=== PATIENT | male | born 1950 | race Caucasian/White ===

== ENCOUNTER 2016-08-28 22:51 | Observation (INO) | payer OTHER, MEDICARE ==
--- NOTE | ~2016-08-28 | HP ---
History And Physical [facility] [address] [facility] [place]. [address] NAME: KRISTINA MANN SR : 54 STATUS : DIS Jeremias PAT#: [id number] AGE: 66 ADM/REG DATE : 08/28/16 MR#: [id number] REPORT SERV DATE: 08/30/16 DICTATED BY: RICARDO FRAZIER DATE: 08/29/16 REPORT STATUS : Draft TRANSCRIBED BY: MODL DATE: 08/29/16 DATE OF ADMISSION: 08/28/2016 CHIEF COMPLAINT: Weakness, slurred speech, and right facial numbness. HISTORY OF PRESENT ILLNESS: This is a 65-year-old male with a history of cirrhosis of the liver with splenomegaly, portal hypertension, and insulin-dependent diabetes mellitus who comes to the emergency room today at [facility], brought by one of his friends. History was obtained from the patient, his who is at bedside, and reviewing data available on the Optimus system. According to the patient and his , he actually was alone in his house today as his had been to [place]. In the afternoon, he started having difficulty with speaking and found he had slurred speech. The right side of his face also started going numb and later on started drawing in his words. This resulted in his mouth being all crooked. He tried calling his , but she was at a place where she could not get her phone. So, he called his neighbor friend who saw the whole thing and decided to bring him to the emergency room here. The patient had to be driven over here in a TUV as he was afraid if he called an ambulance, they would take him to [facility] where he did not want to go. In the emergency room upon arrival, his symptoms had all but resolved. His facial numbness and drawing had resolved, and he was able to speak. The rest of his workup revealed he had pancytopenia with thrombocytopenia and a platelet count of 25,000, and given his symptoms of transient ischemic attack, Hospitalist Service was asked to admit him for further evaluation and treatment. At the time of my evaluation, he denied any chest pain, palpitations, or orthopnea. He had no cough, hemoptysis, night sweats, or weight loss. He has not had any recent falls or loss of consciousness. He has not had any recent fevers, chills, nausea, vomiting, or diarrhea. No history of recent hematemesis, hematochezia, or hematuria. No other history of recent travel or exposures. PAST MEDICAL HISTORY: Significant for history of cirrhosis of the liver with splenomegaly, portal hypertension with gastric and esophageal varices, insulin-dependent diabetes mellitus, hypertension, and pseudoseizures. He has had cholecystectomy and liver biopsy in the past. He also has colitis. SOCIAL HISTORY: He does not smoke. He used to drink but has not had any liquor in the last 12 years. No history of recreational drug use. 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 FAMILY HISTORY: Noncontributory. MEDICATIONS: His medications at home were reviewed by me in the chart today and reordered by me. REVIEW OF SYSTEMS: As in the history of present illness. All other systems were reviewed in detail and are History And Physical [address] [place]. [address] NAME: KRISTINA MANN : 54 STATUS : DIS Jeremias PAT#: [id number] AGE: 66 ADM/REG DATE : 08/28/16 MR#: [id number] REPORT SERV DATE: 08/30/16 DICTATED BY: RICARDO FRAZIER DATE: 08/29/16 REPORT STATUS : Draft TRANSCRIBED BY: KEIRA DATE: 08/29/16 quite unremarkable. PHYSICAL EXAMINATION: GENERAL: This is a pleasant 65-year-old, not in any acute distress. HEENT: His head is atraumatic and normocephalic. He is alert, awake, and oriented to time, place, and person. Pupils are equal, reacting to light, and accommodating. External ocular muscles are intact. Membranes are moist and pink. Sclerae are nonicteric. NECK: Supple with no jugular venous distention, lymphadenopathy, or thyromegaly. LUNGS: Clear to auscultation with no wheezes, rubs, or crackles. HEART: Heart sounds were regular with no murmurs, rubs, or gallops. ABDOMEN: Soft and nontender. Bowel sounds are present. EXTREMITIES: Showed no cyanosis, clubbing, or edema. NEUROLOGIC: Exam appeared to be essentially within normal limits. There were no deficits, motor or sensory. Speech was normal. Higher functions appeared intact. He was able to move all four extremities. Gait was normal. VITAL SIGNS: His vital signs today showed a temperature of 98.3, pulse 86, respirations 18 a minute, and blood pressure was 133/65. Oxygen saturations were 99%, breathing 2 liters of oxygen via nasal cannula. LABORATORY DATA: Reviewed on the Optimus system showed a sodium of 139, potassium 3.8, chloride 107, CO2 of 23, BUN was 13 with a creatinine of 0.90, and blood glucose was 243. His troponin was 0.02 and ammonia was 57 today. CBC showed a white blood cell count of 3000. Hemoglobin was 12.2, hematocrit 34.8, and the platelet count was down to 25,000. His prothrombin time was 18.5 with an INR 1.6 today. Urinalysis was grossly unremarkable today. Films of the CT scan of his brain; films were reviewed by me on the PACS today and interpreted by me. Official radiology report was also reviewed. There is no acute intracranial process at this time. Chest x-ray films were reviewed and interpreted by me on the PACS. Per my interpretation, there are increased vascular markings with a small right- sided pleural effusion as well. A 12-lead EKG done in the emergency room was reviewed and interpreted by me. There is normal sinus rhythm with a rate of [address] elevations or depressions. IMPRESSION: 1. Dysarthria. 2. Right facial numbness. 3. Transient ischemic attack. 4. Pancytopenia. 5. Hypertension. 6. Cirrhosis of the liver with splenomegaly. 7. Portal hypertension with gastric and esophageal varices, status post banding. 8. History of pseudoseizures. PLAN: We will admit Mr. Mann to the Hospitalist Service with telemetry for a 24-hour observation period. We will follow non-tPA stroke orders. Consult Neurology in the morning. We will check his MRI and MRA of the brain and echo as well. We will hold off on aspirin therapy due to his low platelets and continue statins. Further recommendations will be after Neurology has seen him and he has had his above testing. At this point, I do not History And Physical [address] [place]. [address] NAME: KRISTINA MANN : 54 STATUS : DIS Jeremias PAT#: [id number] AGE: 66 ADM/REG DATE : 08/28/16 MR#: [id number] REPORT SERV DATE: 08/30/16 DICTATED BY: FREDDIERICARDO DATE: 08/29/16 REPORT STATUS : Draft TRANSCRIBED BY: KEIRA DATE: 08/29/16 think cirrhosis is contributing to his above symptoms. His ammonia is stable. His portal hypertension is stable. We will start him on blood sugar control with NovoLog given subcutaneously per sliding scale. Continue all other medications and treatments that he is on. We will place him on SCDs for DVT prophylaxis while he is here. While I was there, he had another episode of shaking allover his body, especially his upper and lower extremities, but during the shaking, I addressed him and had a conversation with him, and he was able to talk to me. It lasted for a couple of minutes and quit. He had no postictal signs at all. He was able to have a conversation with me. Hospitalist Service will be following him during his stay here. /KEIRA Ricardo Frazier M.D. / [id number] CC: Jean Sutherland Jr, MD
--- NOTE | ~2016-08-28 | DS ---
Discharge Summary [facility] [address] [place]. [address] NAME: KRISTINA MANN SR : 54 STATUS : DIS Jeremias PAT#: [id number] AGE: 66 ADM/REG DATE : 08/28/16 MR#: [id number] REPORT SERV DATE: 08/31/16 DICTATED BY: JR. SUTHERLAND WILLIAM JOHN DATE: 08/30/16 REPORT STATUS : Draft TRANSCRIBED BY: KEIRA DATE: 08/30/16 ADMISSION DATE: 08/28/2016 DISCHARGE DATE: 08/30/2016 DISCHARGE DIAGNOSES: 1. Transient ischemic attack with facial numbness and dysarthria. 2. Cirrhosis. 3. Splenomegaly. 4. Portal hypertension. 5. History of esophageal varices. 6. Chronic pain and leukopenia. 7. Chronic thrombocytopenia. 8. Diabetes mellitus type 2 with a hemoglobin A1c of 6.7. 9. History of pseudoseizures. 10.Hypokalemia. OPERATIONS, PROCEDURES, AND TREATMENTS: Include: 1. CT of the brain done on 08/28/2016, which was unremarkable without acute intracranial pathology. 2. Chest x-ray done on 08/28/2016, there was possible atelectasis and/or effusion versus possible pneumonia of the right lung base. 3. MRI of the brain showed no acute intracranial pathology. 4. MRA of the neck and head, both of which were normal. CONSULTING PHYSICIAN: Dr. Beata Cristobal of Neurology. DISCHARGE MEDICATIONS: Included, 1. Vitamin C 500 mg orally twice a day. 2. Vitamin B12 of 1000 mcg orally daily. 3. Calcium plus D 500 mg orally daily. 4. Lasix 40 mg orally daily. 5. Nadolol 20 mg orally daily. 6. Omeprazole 40 mg orally daily. 7. Rifaximin 550 mg orally twice a day. 8. Aldactone 50 mg orally daily. 9. Topamax 25 mg orally twice a day. 10.70/30 insulin 25 units twice a day. 11.Magnesium 1 tablet orally daily. HOSPITAL COURSE: The patient was a 65-year-old white male, presented to [facility] emergency room on 08/28/2016 with complaint of weakness, slurred speech, and right-sided facial numbness. The patient had been alone all day. His was out of town. He started having difficulty speaking and was found to have slurred speech with the right side of his face started going numb and later started drawing his words. This results with his mouth being "crooked." He tried calling his , but he said he could not get her on the phone, so he called his neighbor, who saw the whole thing and decided to bring him to the emergency Discharge Summary [place] [address] [place]. [address] NAME: KRISTINA MANN : 54 STATUS : DIS Jeremias PAT#: [id number] AGE: 66 ADM/REG DATE : 08/28/16 MR#: [id number] REPORT SERV DATE: 08/31/16 DICTATED BY: JR. SUTHERLAND WILLIAM JOHN DATE: 08/30/16 REPORT STATUS : Draft TRANSCRIBED BY: KEIRA DATE: 08/30/16 room. At that time, the patient presented to the emergency room, his symptoms had resolved. Initial exam was remarkable for a neurologic exam that was normal. Vital signs were normal. Laboratory was remarkable for leukopenia and thrombocytopenia, which are chronic and secondary to cirrhosis. The patient was admitted to the Clinical Decision Unit. He was seen in consultation by Dr. Beata Cristobal of Neurology who recommended MRI of the brain, MRA of the head and neck. The patient also had a headache and was started on Topamax. By 08/30/2016, the patient had MRI of the brain, MRA of the neck and head, both of which were normal. His symptoms had resolved. He will have a repeat electrolytes drawn and will also have an echocardiogram. If these are normal, the patient will be discharged home today 08/30/2016. For discharge exam and laboratory, please see daily progress note. DIET: Will be 2 g sodium diet. ACTIVITY: As tolerated. This discharge took 30 minutes for patient encounter, coordination of care, and documentation. WJF/KEIRA Jean Sutherland Jr, MD / [id number] CC: Jean Sutherland Jr, MD Daniel Vance, M.D.
--- NOTE | ~2016-08-28 | CN ---
Consultation Report [facility] [address] [place]. [address] NAME: KRISTINA MANN SR : 54 STATUS : DIS Jeremias PAT#: [id number] AGE: 66 ADM/REG DATE : 08/28/16 MR#: [id number] REPORT SERV DATE: 08/29/16 DICTATED BY: DATE: REPORT STATUS : Draft TRANSCRIBED BY: MODL DATE: 08/29/16 NEUROLOGY CONSULTATION DATE OF CONSULTATION: 08/29/2016 REASON FOR CONSULT: Right-sided weakness as well as headache. HISTORY OF PRESENT ILLNESS: This is a 65-year-old male who presented to [facility] on 08/28/2016 secondary to acute onset of left facial weakness which the patient reports symptoms started with a headache. The patient subsequently is feeling abnormal sensation in the right face with facial twitching as well as drawing of the right face. The patient in addition also reports weakness in the right upper extremity. The patient's symptom lasted for several hours and subsequently improved. Also, the patient still complains of headache present. He currently was noted to have intact language and was not noted to have any dysarthria and was noted to have symmetric face. The patient reports similar events in the past roughly within the last two years with associated headache as well. Otherwise, the patient denies the usual headache in the past and denies any recent illness, fever, chills, nausea, vomiting, chest pain, or shortness of breath. The patient's review of systems otherwise is negative except for those mentioned in the HPI. PAST MEDICAL HISTORY: Consists of the hepatic cirrhosis with splenomegaly as well as portal hypertension with gastric and esophageal varices. Monitor by the EGD every six months. The patient was noted to have pancytopenia as well as type 2 diabetes, hypertension, and history of and pseudoseizures in the past. ALLERGIES: THE PATIENT REPORTS ALLERGIES TO PENICILLIN WELL NONSTEROIDAL ANTI- INFLAMMATORY MEDICATIONS. HOME MEDICATIONS: Consist of vitamin C, calcium with vitamin D, vitamin B12, Lasix, NovoLog, nadolol, Prilosec, Xifaxan, Aldactone, as well as magnesium. SOCIAL HISTORY: Denies tobacco, alcohol, or recreational drug usage. The patient quit drinking roughly 30 years ago. FAMILY HISTORY: Significant for cirrhosis, as well as diabetes, and congestive heart failure. REVIEW OF SYSTEMS: Review of systems negative except for those mentioned in the HPI. PHYSICAL EXAMINATION: VITAL SIGNS: Since the hospital admission, the patient was noted to have overnight vital signs with T-max of 98.3, heart rate of 67-70, respirations of 18, and blood pressure of 129 to 131 over 62 to 65. Consultation Report [place] [id number] [place]. [address] NAME: KRISTINA MANN : 54 STATUS : DIS Jeremias PAT#: [id number] AGE: 66 ADM/REG DATE : 08/28/16 MR#: [id number] REPORT SERV DATE: 08/29/16 DICTATED BY: DATE: REPORT STATUS : Draft TRANSCRIBED BY: MODL DATE: 08/29/16 GENERAL: The patient is well developed, well nourished, in no acute distress. CARDIOVASCULAR: Regular rate and rhythm. No carotid bruits were otherwise auscultated. PULMONARY: Clear to auscultation bilaterally. NEUROLOGICAL: Generally, the patient alert and oriented to person, place, year, and month. Follows simple and two-step commands. No dysarthria or aphasia was otherwise appreciated at the time of evaluation. Registration difficulties with recall. Mild decreased attention span was noted at the time of evaluation. Cranial nerves 2 through 12: Pupils equal, round, and reactive to light. Extraocular eye movement was noted to be full, symmetrical facial expression and sensation. Midline tongue. Normal palatal movement. Normal hearing. The patient demonstrated 5/5 bilateral upper and lower extremity strength. No pronator drift was appreciated. Deep tendon reflex was otherwise 1+ throughout. Downgoing toe on bilateral plantar reflexes and normal hxwyds-wa-fydc examination. Normal gait. LABORATORY STUDIES: Demonstrated white blood cell count of 3.0, hemoglobin of 12.2, hematocrit of 34.8, platelet count of 25. Chemistry panel: Sodium of 144, potassium of 3.3, chloride of 111, bicarb 23, BUN of 11, creatinine 0.60, glucose of 106, calcium of 8.2, magnesium 1.7. Serum cholesterol of 101, HDL of 50, LDL of 39, triglyceride of 61. Serum ammonia level of 57. Urinalysis demonstrated negative leukocyte esterase, negative nitrite. CT scan of the brain otherwise demonstrated no acute process. IMPRESSION: Right hemiparesis and headache symptoms improved, the patient's time of onset is around 2000 hours on 08/28/2016. NIH Stroke Scale is currently 0. We will check MRI of the brain as well as stroke workup. Concern for possible cerebrovascular accident versus transient ischemic attack versus a complex migraine. We will start the patient on Topamax 25 mg p.o. b.i.d. for headache. RECOMMENDATIONS: 1. MRI of the brain without contrast. 2. MRA of the head and neck. 3. Echocardiogram. 4. Fasting lipid panel and hemoglobin A1c. 5. We will not start aspirin secondary to thrombocytopenia. 6. We will hold statin secondary to cirrhosis. [facility]/MODL José Miguel Cristobal MD / [id number] CC: Jean Sutherland Jr, MD
[~2016-08-28 22:51] MED LIST: B12100T PO; B12250T PO; CALTRA600D PO; COR20 PO; CYANO1000T PO; DEMA20 PO; FLAG500TAB PO; GLUCOTROL5 PO; GLUCPH8 PO; HUMULIN SC; INSNOV7030 SC; INSNOVN SC; KDUR20 PO; KEPPRA1000 MG PO; KEPPRA500 PO; L20 PO; L40 PO; LEVAQUIN750 MG PO; LOTRIMIN CREAM; NOVOPEN SC; NOVOPENMIX SC; OS500+D PO; PRILO PO; PRILOSEC40 MG PO; RANITIDINE300 MG PO; SPIRO25 PO; SPIRO50 PO; VITAMIN B-121000 MC1 SL; VITAMIN C100 M1 PO; VITAMIN C100 MG PO; VITC500 PO; XIFAXAN550 MG PO; ZYRTEC ALLGY10 MG PO
[2016-08-28 23:36] LABS: BASOPHILS 0.3 %; BASOPHILS ABSOLUTE 0.01 10/3/uL (0.0-0.16); EOSINOPHILS 3.6 %; EOSINOPHILS ABSOLUTE 0.11 10/3/uL (0.0-0.53); ER CBC TAT 0 Hrs 05 Mins; HEMATOCRIT 34.8 % (40.0-51.0); HEMOGLOBIN 12.2 g/dL (13.6-17.8); IMMATURE GRANULOCYTES 0.3 %; IMMATURE GRANULOCYTES ABSOLUTE 0.01 10/3/uL (0.0-0.11); LYMPHOCYTES 13.9 %; LYMPHOCYTES ABSOLUTE 0.42 10/3/uL (0.67-4.30); MEAN CORPUS HGB CONC 35.1 g/dL (32.0-36.0); MEAN CORPUSCULAR HEMOGLOB 29.1 pg (26.0-34.0); MEAN CORPUSCULAR VOLUME 83.1 fL (80-100); MEAN PLATELET VOLUME 9.9 fL (9.2-13.0); MONOCYTES 7.6 %; MONOCYTES ABSOLUTE 0.23 10/3/uL (0.21-1.20); NEUTROPHILS 74.3 %; NEUTROPHILS ABSOLUTE 2.25 10/3/uL (2.02-8.40); RED CELL COUNT 4.19 10/6/uL (4.7-6.1)
[2016-08-28 23:38] LABS: PLATELET COUNT 25 10/3/uL (150-400)
[2016-08-28 23:39] LABS: MANUAL DIFF NO %
[2016-08-28 23:46] LABS: PLATELET ESTIMATE DEC (ADEQUATE)
[2016-08-28 23:47] LABS: INTERNATIONAL NORMAL RATI 1.6 UNITS (-); PROTIME (NOT ORD) 18.5 SEC (12.0-14.5)
[2016-08-28 23:48] LABS: PARTIAL THROMBO TIME 35.6 SEC (22.5-37.2)
[2016-08-28 23:53] LABS: ALBUMIN 3.1 G/DL (3.5-5.0); ALKALINE PHOSPHATASE 72 U/L (45-117); BUN (BLOOD UREA NITROGEN) 13 MG/DL (6-23); CALCIUM, SERUM 8.3 MG/DL (8.5-10.4); CHLORIDE, SERUM 107 MMOL/L (96-112); CO2 (CARBON DIOXIDE) 23 MMOL/L (24-34); GFR AFRICAN AMERICAN 105 ML/MIN (>=60); GFR NON AFRICAN AMERICAN 91 ML/MIN (>=60); GLOBULIN 3.1 G/DL (2.5-4.1); GLUCOSE, SERUM 242 MG/DL (60-99); POTASSIUM, SERUM 3.8 MMOL/L (3.5-5.3); SGOT(AST) 32 U/L (5-40); SGPT(ALT) 28 U/L (5-65); SODIUM, SERUM 139 MMOL/L (135-148); TOTAL PROTEIN 6.2 G/DL (6.0-8.5); TROPONIN I <0.02 NG/ML (<0.05)
[2016-08-28 23:59] LABS: OVALOCYTES 1+ (3-10/OIF) (0-2/OIF); POIKILOCYTOSIS 1+ (5-10/OIF) (0-5/OIF); TOTAL BILIRUBIN 3.7 MG/DL (0-1.2)
[2016-08-29 01:06] LABS: ASCORBIC ACID (UR NOT ORDER) 40 (NEG); BILIRUBIN, URINE NEGATIVE (NEG); ER URINALYSIS TAT 0 Hrs 00 Mins; KETONE, URINE NEGATIVE (NEG); LEUKOCYTE ESTERASE(NOT OR NEG (NEG); NITRITE (URINE) NEG (NEG); WBC (NOT ORDERED) (RFLEX) < 1 (0-5)
[2016-08-29] MEDS ORDERED: L40 PO (03:24)
[2016-08-29] MEDS ORDERED: NOVOPENMIX SC (03:26)
[2016-08-29] MEDS ORDERED: MAGNESIUM PO (03:39)
[2016-08-29 08:48] LABS: BUN (BLOOD UREA NITROGEN) 11 MG/DL (6-23); CALCIUM, SERUM 8.2 MG/DL (8.5-10.4); CHLORIDE, SERUM 111 MMOL/L (96-112); CHOLESTEROL 101 MG/DL (< 200); CO2 (CARBON DIOXIDE) 23 MMOL/L (24-34); CPK (IF ELEVATED MB BANDS) 81 U/L (0-200); GFR AFRICAN AMERICAN 124 ML/MIN (>=60); GFR NON AFRICAN AMERICAN 107 ML/MIN (>=60); GLUCOSE, SERUM 106 MG/DL (60-99); HDL CHOLESTEROL 50 MG/DL (> 39); LDL CHOLESTEROL 39 MG/DL (< 130); NON-HDL CHOLESTEROL 51 MG/DL (< 160); PHOSPHORUS, SERUM 2.3 MG/DL (2.5-4.5); POTASSIUM, SERUM 3.3 MMOL/L (3.5-5.3); SODIUM, SERUM 144 MMOL/L (135-148); TRIGLYCERIDE 61 MG/DL (< 150); TROPONIN I <0.02 NG/ML (<0.05)
[2016-08-29 17:13] LABS: CPK (IF ELEVATED MB BANDS) 64 U/L (0-200); TROPONIN I <0.02 NG/ML (<0.05)
[2016-08-30 09:48] LABS: BUN (BLOOD UREA NITROGEN) 11 MG/DL (6-23); CALCIUM, SERUM 8.7 MG/DL (8.5-10.4); CHLORIDE, SERUM 112 MMOL/L (96-112); CO2 (CARBON DIOXIDE) 22 MMOL/L (24-34); CREATININE 0.71 MG/DL (0.70-1.30); GFR AFRICAN AMERICAN 116 ML/MIN (>=60); GFR NON AFRICAN AMERICAN 100 ML/MIN (>=60); GLUCOSE, SERUM 116 MG/DL (60-99); SODIUM, SERUM 143 MMOL/L (135-148)
[2016-08-30] MEDS ORDERED: TOPAMAX25 PO (15:58)
== END 2016-08-30 16:53 | disposition home or self-care (01) ==
LOC: ER 22:51 → CDU1 23:59 → CDU2 08-29 02:00
PROVIDERS: Internal Medicine; Specialist
DX: G45.9 Transient cerebral ischemic attack, unspecified (principal); K74.60 Unspecified cirrhosis of liver; R16.1 Splenomegaly, not elsewhere classified; K76.6 Portal hypertension; G89.29 Other chronic pain; D72.819 Decreased white blood cell count, unspecified; D69.6 Thrombocytopenia, unspecified; E87.6 Hypokalemia; D64.9 Anemia, unspecified; E11.9 Type 2 diabetes mellitus without complications; Z79.899 Other long term (current) drug therapy; Z90.49 Acquired absence of other specified parts of digestive tract; Z88.0 Allergy status to penicillin; Z88.8 Allergy status to other drugs, medicaments and biological substances; Z79.52 Long term (current) use of systemic steroids; Z87.891 Personal history of nicotine dependence; Z83.3 Family history of diabetes mellitus; Z82.49 Family history of ischemic heart disease and other diseases of the circulatory system; Z98.890 Other specified postprocedural states
CPT/HCPCS: 36415; 70450; 70544; 70547; 70551-52; 71010; 80048; 80053; 80061; 81001; 82140; 82550; 82962; 83036; 83735; 84100; 84484; 85025; 85610; 85730; 86850; 86900; 86901; 87040; 93005; 93306; 99285; A9270-GY; G0378

== ENCOUNTER 2016-11-12 20:34 | Inpatient (IN) | payer OTHER, MEDICARE ==
--- NOTE | ~2016-11-12 | HP ---
History And Physical [address] [address] NAME: KRISTINA MANN : 54 STATUS : DIS IN PAT#: [id number] AGE: 66 ADM/REG DATE : 11/13/16 MR#: [id number] REPORT SERV DATE: 11/13/16 DICTATED BY: SONAL MCCORMACK DATE: 11/13/16 REPORT STATUS : Draft TRANSCRIBED BY: MODL DATE: 11/13/16 DATE OF ADMISSION: 11/13/2016 CHIEF COMPLAINT: This is a 66-year-old male presenting with abdominal pain, in particular discomfort and a periumbilical ventral hernia. HISTORY OF PRESENT ILLNESS: The patient's history was obtained through careful interview with the patient and , coupled with review of [facility] medical records. The patient has underlying cirrhosis of unclear etiology and he has been followed by the Liver Transplant Program at [facility]. A few nights prior to admission, he began to feel "sick." He developed nausea, vomiting, and increasing abdominal pain. Although he has diffuse abdominal pain, most of his abdominal pain will center around the periumbilical hernia and has increased in size and discoloration. It is a distended kind of quality with aching sharp pain up to a 20/10 severity as he describes it. He has chronic diarrhea that is unchanged from baseline. There is no blood in the stool. No blood in his vomit. No fevers or chills. No shortness of breath. No chest pain. REVIEW OF SYSTEMS: Otherwise, a 14-point review of systems was obtained and was negative. PAST MEDICAL HISTORY: 1. Cirrhosis, followed locally by Dr. Víctor Craven, but also followed at [facility]. 2. Pancytopenia. 3. Diabetes. 4. Seizures. 5. Varices with portal hypertension and splenomegaly, seen by Dr. Ino Kendrick. 6. Hepatic encephalopathy. 7. Colitis in May 2015. 8. Hypertension. 9. Ascites. 10.Transient ischemic attack. PAST SURGICAL HISTORY: 1. Cholecystectomy. 2. Left foot surgery. ALLERGIES: TO PENICILLIN, ATIVAN, NONSTEROIDAL ANTI-INFLAMMATORY DRUGS. History And Physical [address] [address] NAME: ORTIZ MANNNEY JOSY : 54 STATUS : DIS IN PAT#: [id number] AGE: 66 ADM/REG DATE : 11/13/16 MR#: [id number] REPORT SERV DATE: 11/13/16 DICTATED BY: SONAL MCCORMACK DATE: 11/13/16 REPORT STATUS : Draft TRANSCRIBED BY: KEIRA DATE: 11/13/16 SOCIAL HISTORY: He quit smoking. Quit alcohol remotely. He is . Disabled. He has children and grandchildren. Lives in [place], [place], [place] [address]. 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 FAMILY HISTORY: Father with congestive heart failure. Mother also suffered from cirrhosis and in her 70s. CURRENT MEDICATIONS: Include vitamin C 500 mg p.o. b.i.d., Tessalon Perles, calcium, vitamin D, vitamin B12, Lasix 40 mg p.o. daily; Novolin 70/30, 25 units subcutaneous twice a day; nadolol 20 mg p.o. daily; omeprazole 40 mg p.o. daily; rifaximin 550 mg p.o. b.i.d., Aldactone same. PHYSICAL EXAMINATION: VITAL SIGNS: Temperature 98.2, pulse 58, blood pressure 142/61, respiratory rate 18, and O2 saturation 100% on room air. GENERAL: Pleasant, cooperative, male. No evidence of acute distress. His pain has been well managed with IV narcotic pain management in the emergency department. HEENT: Pupils are equal, round, and reactive to light. No conjunctival pallor. No scleral icterus. Nares are patent. Oropharynx is clear of obstruction. Moist mucous membranes. NECK: Trachea midline. No thyromegaly. LYMPHATIC: No cervical lymphadenopathy. No supraclavicular lymphadenopathy. RESPIRATORY: Clear to auscultation at bases. No wheezes, rales, or rhonchi. Normal respiratory effort. CARDIOVASCULAR: Regular rate and rhythm. No murmurs, rubs, or gallops. No extremity edema is appreciated. ABDOMEN: Significant tenderness throughout exam, particularly around his umbilicus. He has an area of swelling, tenderness, and herniation with a purplish discoloration, mild erythema as well and heat. There is guarding, but no rebound. I do appreciate splenomegaly. No hepatomegaly though by exam. DERMATOLOGIC: Warm and dry extremities. No pallor. No cyanosis. PSYCHIATRIC: Normal affect. Good mood. Alert and oriented x3. LABORATORY DATA: Lactic acid 1.3. Lipase 222. Total bilirubin 4.9. White blood count 3.8, hemoglobin 12, hematocrit 36, platelets 28. Sodium 139, potassium 3.5, chloride 106, bicarb 27, BUN 12, creatinine 0.88, glucose 176. Urinalysis is negative for infection. STUDIES: CT scan of the abdomen shows umbilicus stranding with colitis, cirrhosis. There is no bowel in the hernia. ASSESSMENT AND PLAN: 1. Acute colitis, placed on IV fluids, placed on Levaquin and Flagyl. Check Clostridium difficile toxin. Consult slag motor operator, Dr. Ino Kendrick. 2. Umbilical hernia, quite symptomatic. Obtain a surgery consult with Dr. Hogan, may need transfer to [facility]? 3. Cirrhosis, being evaluated at [place] for liver transplant. 4. Pancytopenia, stable. History And Physical [address] [address] NAME: KRISTINA MANN : 54 STATUS : DIS IN PAT#: [id number] AGE: 66 ADM/REG DATE : 11/13/16 MR#: [id number] REPORT SERV DATE: 11/13/16 DICTATED BY: SONAL MCCORMACK DATE: 11/13/16 REPORT STATUS : Draft TRANSCRIBED BY: KEIRA DATE: 11/13/16 ROLAND/KEIRA Sonal Mccormack M.D. / [id number] CC: MD Tony Corbett M.D. Sumeet Bhushan, M.D. Chirag Patel, M.D.
--- NOTE | ~2016-11-12 | DS ---
Discharge Summary [facility] [address] [place]. [address] NAME: KRISTINA MANN : 54 STATUS : DIS IN PAT#: [id number] AGE: 66 ADM/REG DATE : 11/13/16 MR#: [id number] REPORT SERV DATE: 11/14/16 DICTATED BY: SONAL MCCORMACK DATE: 11/13/16 REPORT STATUS : Draft TRANSCRIBED BY: MODL DATE: 11/13/16 ADMISSION DATE: 11/13/2016 DISCHARGE DATE: 11/13/2016 DISCHARGE DIAGNOSES: 1. Umbilical hernia. 2. Acute colitis. 3. Cirrhosis. 4. Pancytopenia. HOSPITAL COURSE: The patient was hospitalized, placed on IV narcotics, IV fluids, and supportive care. We had a Surgery consultation with Dr. Martin Hogan early on the morning of admission. It was felt that patient's umbilical hernia was unreducible. It showed signs of early strangulation, although it was confirmed by second evaluation of the CT scan that there was no bowel involved in the hernia itself. 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 It was felt that patient should really have urgent (but not necessarily emergent) surgery. I, therefore, called the [facility] program and assessed the case with Dr. Vickey Connelly, who felt that there were specialized liver surgeon at [facility] that might be able to most appropriately handle this kind of surgery, particularly since his involved significant surgical issues related to patient's underlying portal hypertension and venous congestion. Therefore, I discussed the case with our transfer center and [facility] in an urgent transfer by ambulance up to [place], [place] for evaluation for the surgical intervention. The patient was kept n.p.o., continued on antibiotics and IV fluids, and arrange for transfer. KPL/MODWhitney Sonal Mccormack M.D. / [id number] CC: Jeremiah D. RyanMD Tony march M.D. Chirag Patel, M.D. Sumeet Bhushan, M.D.
--- NOTE | ~2016-11-12 | CN ---
Consultation Report [facility] [address] [place]. [address] NAME: KRISTINA MANN : 54 STATUS : DIS IN PAT#: [id number] AGE: 66 ADM/REG DATE : 11/13/16 MR#: [id number] REPORT SERV DATE: 11/13/16 DICTATED BY: LUCERO WALTER III DATE: 11/13/16 REPORT STATUS : Draft TRANSCRIBED BY: MODWhitney DATE: 11/13/16 DATE OF CONSULTATION: 11/13/2016 ATTENDING PHYSICIANS: 1. Jeremiah Davis MD. 2. Reed Toney M.D. REASON FOR CONSULT: 1. "Umbilical hernia.". 2. Recommendation regarding surgical management. HISTORY OF PRESENT ILLNESS: I am asked to see this 66-year-old male who was hospitalized for the above reasons. This is a 66-year-old male, who has a history of cirrhosis and portal hypertension with esophageal varices, complains of pain and tenderness just above the navel. The patient states that he has had what he felt was a hernia above his navel chronically. He states that this will intermittently be true and then he has always been able to reduce it easily. He states that two days ago the area became very hard and very swollen and very tender. He then developed nausea and vomiting. The patient states that he was out of town when this occurred. He presented to the emergency room during the night and was found to have a tender mass of the umbilicus, thought to be an umbilical hernia. The patient again states this has always been reducible. He has had no nausea, vomiting, or symptoms related to it until again two days ago when it became suddenly very hard and very tender and could not be reduced. PAST MEDICAL HISTORY: 1. History of cirrhosis. The patient is currently on transplant list at [facility] for this. The etiology for his cirrhosis is unclear. 2. History of diabetes. 3. History of hypertension. 4. History of documented esophageal varices since at least 2009. 5. Previous history of alcohol use some 30 years ago. REVIEW OF SYSTEMS: The patient complains of nausea, vomiting, and pain related to the umbilical supraumbilical mass. In addition to the above problems, the patient has a history of insulin-dependent diabetes mellitus. He has a history of apparent recent transient ischemic attack. He has a history of colitis. FAMILY HISTORY: Unremarkable. MEDICATIONS: As per medication list, which I reviewed. PHYSICAL EXAMINATION: Consultation Report [place] [place] [id number] [facility] [place]. [address] NAME: KRISTINA MANN : 54 STATUS : DIS IN PAT#: [id number] AGE: 66 ADM/REG DATE : 11/13/16 MR#: [id number] REPORT SERV DATE: 11/13/16 DICTATED BY: LUCERO WALTER III DATE: 11/13/16 REPORT STATUS : Draft TRANSCRIBED BY: MODWhitney DATE: 11/13/16 VITAL SIGNS: Blood pressure 122/64, temperature 98, pulse 76. GENERAL: This is a male, in no acute distress. He is alert and oriented x3. HEENT: Unremarkable. Cranial nerves 2 through 12 are normal. LUNGS: Clear. CARDIAC: Normal. ABDOMEN: Soft. Just above the navel, there is a very tender firm mass. This is not reducible. This is some 3 to 4 cm in size. It is very tender. EXTREMITIES: Normal. IMAGING: The patient had CT scan of the abdomen and pelvis in the emergency room, which I have reviewed. This shows a supraumbilical cystic structure. There was noted to be a varix within this. I have reviewed this carefully with Dr. Bah of Radiology. This could be consistent with a small incarcerated ventral hernia. There appears to be preperitoneal fat and fluid within this and some inflammatory changes. There was varix, apparently preperitoneal in origin, associated with the inflammatory mass. There are no intestines within this. I believe this is consistent with incarcerated supraumbilical hernia. LABORATORY DATA: White blood cell count 3, platelet count 24,000, glucose of 134, total bilirubin of 5.7. ASSESSMENT: A 66-year-old male with, 1. Acute supraumbilical mass, which I believe it is consistent with an acutely incarcerated supraumbilical hernia. There appears to be no bowel within this, but there is fluid and varix most likely related to preperitoneal structures or umbilical vein. This has occurred acutely and has been associated with nausea and vomiting. 2. Cirrhosis, Child C with jaundice. 3. Thrombocytopenia and leukopenia related to cirrhosis. 4. Diabetes mellitus. 5. History of transient ischemic attack. PLAN: I discussed this with the patient. I explained that he needs emergent surgery for what I believe is an acutely incarcerated supraumbilical hernia. The patient indicates that he has been told to be transferred to [facility] to the Transplant Service if any surgical intervention is needed. I have talked with Dr. Reed Toney, the admitting physician, and he is in the process of making arrangements for the patient to be transferred emergently to [place]. I have explained that although there is no intestinal vomit, this clearly is a very tender mass, which may become infarcted if surgical intervention is not performed. The urgent nature of this situation was discussed with the patient and Dr. Toney. Again, the arrangements are being made for the patient to be transferred to [facility] today. I will therefore not see the patient back unless requested to do so. This plan has been explained to the patient. His questions have been answered. He understands and agrees to this as planned. Consultation Report [address] [place]. [address] NAME: KRISTINA MANN : 54 STATUS : DIS IN PAT#: [id number] AGE: 66 ADM/REG DATE : 11/13/16 MR#: [id number] REPORT SERV DATE: 11/13/16 DICTATED BY: LUCERO WALTER III DATE: 11/13/16 REPORT STATUS : Draft TRANSCRIBED BY: KEIRA DATE: 11/13/16 PEDRO/KEIRA Lucero Walter III, M.D. / [id number] CC: MD Tony Corbett M.D.
[2016-11-12 19:21] LABS: BASOPHILS 0 %; EOSINOPHILS 3.2 %; EOSINOPHILS ABSOLUTE 0.12 10/3/uL (0.0-0.53); ER CBC TAT 0 Hrs 07 Mins; HEMATOCRIT 35.9 % (40.0-51.0); HEMOGLOBIN 12.3 g/dL (13.6-17.8); IMMATURE GRANULOCYTES 0.3 %; IMMATURE GRANULOCYTES ABSOLUTE 0.01 10/3/uL (0.0-0.11); LYMPHOCYTES 15.5 %; LYMPHOCYTES ABSOLUTE 0.58 10/3/uL (0.67-4.30); MEAN CORPUS HGB CONC 34.3 g/dL (32.0-36.0); MEAN CORPUSCULAR HEMOGLOB 28.3 pg (26.0-34.0); MEAN CORPUSCULAR VOLUME 82.7 fL (80-100); MEAN PLATELET VOLUME 10.9 fL (9.2-13.0); MONOCYTES 14.4 %; MONOCYTES ABSOLUTE 0.54 10/3/uL (0.21-1.20); NEUTROPHILS 66.6 %; RBC DISTRIBUTION WIDTH 16.6 % (12.0-16.0); RED CELL COUNT 4.34 10/6/uL (4.7-6.1); WHITE BLOOD CELLS 3.8 10/3/uL (4.5-10.5)
[2016-11-12 19:22] LABS: MANUAL DIFF NO %; PLATELET COUNT 28 10/3/uL (150-400)
[2016-11-12 19:31] LABS: ASCORBIC ACID (UR NOT ORDER) 40 (NEG); BILIRUBIN, URINE NEGATIVE (NEG); KETONE, URINE NEGATIVE (NEG); LEUKOCYTE ESTERASE(NOT OR NEG (NEG); NITRITE (URINE) NEG (NEG); WBC (NOT ORDERED) (RFLEX) < 1 (0-5)
[2016-11-12 19:34] LABS: ALBUMIN 3.4 G/DL (3.5-5.0); BUN (BLOOD UREA NITROGEN) 12 MG/DL (6-23); CALCIUM, SERUM 8.9 MG/DL (8.5-10.4); CHLORIDE, SERUM 106 MMOL/L (96-112); CREATININE 0.88 MG/DL (0.70-1.30); GFR AFRICAN AMERICAN 105 ML/MIN (>=60); GFR NON AFRICAN AMERICAN 91 ML/MIN (>=60); GLOBULIN 3.4 G/DL (2.5-4.1); POTASSIUM, SERUM 3.5 MMOL/L (3.5-5.3); SGOT(AST) 26 U/L (5-40); SGPT(ALT) 29 U/L (5-65); SODIUM, SERUM 139 MMOL/L (135-148); TOTAL PROTEIN 6.8 G/DL (6.0-8.5)
[2016-11-12 19:36] LABS: ALKALINE PHOSPHATASE 86 U/L (45-117); CO2 (CARBON DIOXIDE) 27 MMOL/L (24-34); GLUCOSE, SERUM 176 MG/DL (60-99); TOTAL BILIRUBIN 4.9 MG/DL (0-1.2)
[2016-11-12 20:16] LABS: TEARDROP SHAPED RBCS FEW (3-10/OIF)
[~2016-11-12 20:34] MED LIST changes: +MAGNESIUM PO; +TOPAMAX25 PO
[2016-11-13] MEDS ORDERED: L40 PO (01:09)
[2016-11-13] MEDS ORDERED: NOVOPENMIX SC (01:09)
[2016-11-13] MEDS ORDERED: PRILOSEC40 MG PO (01:09)
[2016-11-13] MEDS ORDERED: VITC500 PO (01:10)
[2016-11-13] MEDS ORDERED: TESSALON200 MG PO (01:10)
[2016-11-13] MEDS ORDERED: XIFAXAN550 MG PO (01:10)
[2016-11-13] MEDS ORDERED: SPIRO25 PO (01:10)
[2016-11-13] MEDS ORDERED: COR20 PO (01:10)
[2016-11-13] MEDS ORDERED: CALTRA600D PO (01:11)
[2016-11-13] MEDS ORDERED: CYANO1000T PO (01:11)
[2016-11-13 08:07] LABS: BASOPHILS 0 %; EOSINOPHILS 3.4 %; HEMOGLOBIN 11.2 g/dL (13.6-17.8); LYMPHOCYTES 17.4 %; LYMPHOCYTES ABSOLUTE 0.52 10/3/uL (0.67-4.30); MEAN CORPUS HGB CONC 34.9 g/dL (32.0-36.0); MEAN CORPUSCULAR HEMOGLOB 28.9 pg (26.0-34.0); MEAN CORPUSCULAR VOLUME 82.7 fL (80-100); MEAN PLATELET VOLUME 11.2 fL (9.2-13.0); MONOCYTES 18.5 %; MONOCYTES ABSOLUTE 0.55 10/3/uL (0.21-1.20); NEUTROPHILS 60.7 %; NEUTROPHILS ABSOLUTE 1.81 10/3/uL (2.02-8.40); RBC DISTRIBUTION WIDTH 16.6 % (12.0-16.0); RED CELL COUNT 3.88 10/6/uL (4.7-6.1)
[2016-11-13 08:09] LABS: HEMATOCRIT 32.1 % (40.0-51.0); MANUAL DIFF NO %; PLATELET COUNT 24 10/3/uL (150-400)
[2016-11-13 08:16] LABS: INTERNATIONAL NORMAL RATI 1.7 UNITS (-); PARTIAL THROMBO TIME 33.6 SEC (22.5-37.2)
[2016-11-13 08:37] LABS: BUN (BLOOD UREA NITROGEN) 11 MG/DL (6-23); CO2 (CARBON DIOXIDE) 23 MMOL/L (24-34); SGOT(AST) 25 U/L (5-40)
[2016-11-13 08:39] LABS: ALBUMIN 2.7 G/DL (3.5-5.0); TOTAL BILIRUBIN 5.7 MG/DL (0-1.2)
[2016-11-13 08:53] LABS: RBC MORPHOLOGY NORM (NORMAL)
[2016-11-13 09:01] LABS: A/G RATIO 0.9 (0.7-1.9); CHLORIDE, SERUM 110 MMOL/L (96-112); CREATININE 0.78 MG/DL (0.70-1.30); GFR AFRICAN AMERICAN 111 ML/MIN (>=60); GFR NON AFRICAN AMERICAN 95 ML/MIN (>=60); GLOBULIN 2.9 G/DL (2.5-4.1); POTASSIUM, SERUM 3.5 MMOL/L (3.5-5.3); SGPT(ALT) 22 U/L (5-65); SODIUM, SERUM 134 MMOL/L (135-148); TOTAL PROTEIN 5.6 G/DL (6.0-8.5)
[2016-11-13 09:02] LABS: ALKALINE PHOSPHATASE 68 U/L (45-117); GLUCOSE, SERUM 134 MG/DL (60-99)
== END 2016-11-13 11:52 | disposition other institution, planned readmission (95) | DRG 394 ==
LOC: ER 20:34 → 4SO 11-13 01:13
PROVIDERS: Emergency Medicine; Hospitalist
DX: K42.0 Umbilical hernia with obstruction, without gangrene (principal); K76.6 Portal hypertension; D61.818 Other pancytopenia; D69.59 Other secondary thrombocytopenia; K74.69 Other cirrhosis of liver; E11.9 Type 2 diabetes mellitus without complications; Z86.73 Personal history of transient ischemic attack (TIA), and cerebral infarction without residual deficits; I86.8 Varicose veins of other specified sites
CPT/HCPCS: 74177; 80053; 81001; 82962; 83605; 83690; 83735; 84443; 85025; 85610; 85730; 96374; 96375; 99285; A9270-GY; J1170; J1956; J2405; Q9967